=== PATIENT | male | born 1970 | race American Indian/Alaskan Native ===

== ENCOUNTER 2017-05-13 22:51 | Inpatient (IN) | payer OTHER ==
[2017-05-14] MEDS ORDERED: NACL 0.9% 1000 ML 1,000 ML IV ONE ×2 (03:30→08:06)
[2017-05-14] MEDS ORDERED: ZOFRAN ONE ×2 (03:48→04:07)
[2017-05-14] MEDS ORDERED: NACL 0.9% 1000 ML 1,000 ML ONE (03:48)
[2017-05-14] MEDS ORDERED: DILAUDID ONE (03:55)
[2017-05-14] MEDS ORDERED: NACL ONE (04:23)
[2017-05-14 05:44] LABS: Basophils % (Auto) 0.6 % (0.0-1.8); Eosinophils % (Auto) 0.4 % (0.0-4.3); Hematocrit 46.5 % (35.5-45.6); Hemoglobin 15.5 gm/dl (11.8-15.2); Mean Corpuscular HGB Conc 33 % (32-34); Mean Corpuscular Hemoglobin 29 pg (28-32); Mean Corpuscular Volume 86 fl (84-94); Platelet Count 182 K/mm3 (140-440); Red Blood Count 5.41 M/mm3 (3.65-5.03); Red Cell Distribution Width 12.7 % (13.2-15.2); White Blood Count 10.7 K/mm3 (4.5-11.0)
[2017-05-14 05:45] LABS: Alanine Aminotransferase 48 units/L (7-56); Albumin 4.6 g/dL (3.9-5); Albumin/Globulin Ratio 1.5 %; Alkaline Phosphatase 93 units/L (35-129); Anion Gap 19 mmol/L; BUN/Creatinine Ratio 11; Blood Urea Nitrogen 13 mg/dL (9-20); Calcium 9.1 mg/dL (8.4-10.2); Carbon Dioxide 27 mmol/L (22-30); Chloride 97.6 mmol/L (98-107); Glucose 227 mg/dL (75-100); Lipase 29 units/L (13-60); Potassium 3.6 mmol/L (3.6-5.0); Sodium 140 mmol/L (137-145); Total Protein 7.7 g/dL (6.3-8.2)
[2017-05-14] MEDS ORDERED: DILAUDID IV ONE ×2 (06:01→08:12)
[2017-05-14] MEDS ORDERED: ZOFRAN IV ONE (06:01)
--- NOTE | 2017-05-14 07:04 | Cat Scan Report ---
FINAL REPORT EXAM: CT ABDOMEN PELVIS W CON HISTORY: r/o obstruction TECHNIQUE: Routine axial imaging was obtained of the abdomen pelvis following the intravenous injection of 100 cc of Omnipaque 300. Oral contrast was not administered. Sagittal and coronal reconstructions were reviewed along with delayed images. There are no previous studies available for comparison. FINDINGS: The lung bases reveal atelectatic changes in the right lower lobe. Pleural fluid is not identified. There is a small hiatal hernia. The liver is normal size and reveals a faint 15 millimeter number solid nodule in the right hepatic lobe. Whether this represents an incidental hemangioma is uncertain. The gallbladder, pancreas, spleen, and adrenal glands appear normal. The kidneys enhance normally. There are sub centimeter diameter cortical cysts in both kidneys. The vascular structures enhance normally. There [id number] distention of small-bowel loops with air for levels in the abdomen suspicious for partial mechanical small bowel obstruction. There are multiple anastomotic suture lines. Free fluid is not seen. In the pelvis the prostate gland and bladder appear normal. Adenopathy is not identified. The skeletal structures are unremarkable. IMPRESSION: Aszh-ob-wxeocote distention of small-bowel loops consistent with partial mechanical small bowel obstruction. Faint 15 millimeter diameter solid nodule in the right hepatic lobe inferiorly. This may represent a hemangioma. Ultrasonography might be helpful for further evaluation. Atelectatic changes in the right lower lobe. Small cortical cysts in both kidneys.
--- NOTE | 2017-05-14 07:38 | XRay Report ---
Chest 2 views: History: Shortness of breath. Findings: Heart size is upper limit of normal. Trachea is midline. No consolidation, pneumothorax or pleural effusion. Impression: No acute cardiopulmonary findings.
--- NOTE | 2017-05-14 07:50 | Emergency Department Report ---
ED Abdominal Pain HPI - General Chief Complaint: Abdominal Pain Stated Complaint: ABD PAIN Time Seen by Provider: 05/14/17 06:20 Source: patient Mode of arrival: Ambulatory Limitations: No Limitations - History of Present Illness Initial Comments: Pt is a 47 yo male here for abdominal pain in the periumbilical region, that pt noted went up to a 10/10. Pt states that he has been vomiting x 15 along with constipation. Pt states that he is s/p partial colectomy. Pt denied any fever. Pt stated his last bm was about 3 days ago which he stated is unusual for him. MD Complaint: abdominal pain Location: periumbilical Severity scale (0 -10): 3 Consistency: colicky Improves With: nothing - Related Data Previous Rx's Medication Instructions Recorded Last Taken Type Ciprofloxacin HCl [Ciprofloxacin 500 mg PO Q12HR #20 tab 04/10/15 Unknown Rx TAB] traMADol [Ultram] 50 mg PO Q6HR PRN #20 tablet 04/10/15 Unknown Rx Allergies Allergy/AdvReac Type Severity Reaction Status Date / Time aspirin AdvReac Bleeding Verified 05/14/17 01:11 ED Review of Systems ROS: Stated complaint: ABD PAIN Other details as noted in HPI Constitutional: denies: chills, fever ENT: denies: ear pain, throat pain Respiratory: denies: cough, shortness of breath, wheezing Cardiovascular: denies: chest pain, palpitations Endocrine: no symptoms reported Gastrointestinal: abdominal pain, nausea, vomiting, constipation Genitourinary: as per HPI Musculoskeletal: denies: as per HPI Skin: denies: rash Neurological: denies: headache, weakness Psychiatric: denies: as per HPI Hematological/Lymphatic: denies: as per HPI ED Past Medical Hx - Past Medical History Previous Medical History?: Yes Additional medical history: hemophillia - Surgical History Past Surgical History?: Yes Additional Surgical History: colon removed - Social History Smoking Status: Never Smoker - Medications Home Medications: Home Medications Medication Instructions Recorded Confirmed Last Taken Type Ciprofloxacin HCl [Ciprofloxacin 500 mg PO Q12HR #20 tab 04/10/15 Unknown Rx TAB] traMADol [Ultram] 50 mg PO Q6HR PRN #20 tablet 04/10/15 Unknown Rx ED Physical Exam - General Limitations: No Limitations General appearance: alert - Head Head exam: Present: atraumatic - Eye Eye exam: Present: normal appearance, PERRL, EOMI - ENT ENT exam: Present: normal exam - Neck Neck exam: Present: normal inspection - Respiratory Respiratory exam: Present: normal lung sounds bilaterally - Cardiovascular Cardiovascular Exam: Present: regular rate, normal rhythm, normal heart sounds - GI/Abdominal GI/Abdominal exam: Present: soft, distended, tenderness, hypoactive bowel sounds. Absent: guarding, rebound - Rectal Rectal exam: Present: deferred - Extremities Exam Extremities exam: Present: normal inspection - Back Exam Back exam: Present: normal inspection - Neurological Exam Neurological exam: Present: alert, oriented X3, CN II-XII intact - Psychiatric Psychiatric exam: Present: normal affect - Skin Skin exam: Present: warm, dry, intact, normal color ED Course Vital Signs 05/14/17 05/14/17 05/14/17 01:12 01:29 02:00 Temperature 98.6 F Pulse Rate 95 H Respiratory 18 18 Rate Blood Pressure 185/119 172/112 O2 Sat by Pulse 100 99 Oximetry 05/14/17 05/14/17 05/14/17 03:00 04:00 05:00 Temperature Pulse Rate Respiratory Rate Blood Pressure 175/118 181/115 148/81 O2 Sat by Pulse 93 92 94 Oximetry 05/14/17 05/14/17 06:00 07:00 Temperature Pulse Rate Respiratory Rate Blood Pressure 133/86 131/88 O2 Sat by Pulse 95 91 Oximetry - Consultations Consultation #1: 05/14/17 07:49 [id number] Dr Lua consulted regarding partial sBO 05/14/17 08:15 discussed with Brennanet who agreed to admit the pt ED Medical Decision Making - Lab Data Result diagrams: 05/14/17 01:29 05/14/17 01:29 Critical care attestation.: If time is entered above; I have spent that time in minutes in the direct care of this critically ill patient, excluding procedure time. ED Disposition Clinical Impression: Small bowel obstruction, partial Disposition: -09 OP ADMIT IP TO THIS HOSP Is pt being admited?: Yes Does the pt Need Aspirin: No Condition: Stable Referrals: PRIMARY CARE, [Primary Care Provider] - 3-5 Days Time of Disposition: 00:00
[2017-05-14 08:14] LABS: Alanine Aminotransferase 44 units/L (7-56); Albumin 4.4 g/dL (3.9-5); Albumin/Globulin Ratio 1.6 %; Alkaline Phosphatase 86 units/L (35-129); Anion Gap 20 mmol/L; BUN/Creatinine Ratio 12; Bilirubin,Direct 0.6 mg/dL (0-0.2); Bilirubin,Indirect 1.1 mg/dL; Blood Urea Nitrogen 13 mg/dL (9-20); Calcium 9.1 mg/dL (8.4-10.2); Carbon Dioxide 29 mmol/L (22-30); Chloride 98.4 mmol/L (98-107); Glucose 227 mg/dL (75-100); Lipase 30 units/L (13-60); Potassium 3.9 mmol/L (3.6-5.0); Sodium 143 mmol/L (137-145); Total Protein 7.2 g/dL (6.3-8.2)
[2017-05-14] MEDS ORDERED: TYLENOL PO PRN (09:30)
--- NOTE | 2017-05-14 09:37 | XRay Report ---
Single view abdomen: History: NG tube placement. Findings: Tip of NG tube is noted in the stomach. Impression: Tip of NG tube is noted in the stomach.
[2017-05-14] MEDS ORDERED: DULCOLAX PR PRN (10:00)
--- NOTE | 2017-05-14 10:07 | History and Physical Report ---
History of Present Illness Date of examination: 05/14/17 Date of admission: 05/14/17 08:56 Chief complaint: Abdominal pain History of present illness: The patient is a 47 years old male with with pat medical history of hypertension , colon resection and hemophilia who [facility] a 3 days history of worsening abdominal pain and distension. The patient states that for the past five days he has felt bloated and has had a decrease in appetite. 3 days ago he has began having intermittent abdominal pain that initially felt like gas pains but it has now progressed to being nearly constant. Since yesterday he has had severe nausea and has had multiple episodes of bilious vomiting despite not having taken anything by mouth in over 24 hours. His last bowel movement was over five days ago. He has a history of intermittent constipation but never with this level of pain, the vomiting, or the bloating. he has a history of multiple colon surgery as. Initially, when he would eat the pain would increase but he has not eaten anything for over 24 hours. Vomiting is the only thing that seems to provide some minimal relief. Currently, the pain is described as a constant dull, diffuse pain that intermittently becomes sharp and well localized. The sharp pain tends to occur in different locations at different times. The intensity of the pain has been increasing over the past two days and on pain scale he now rates the pain at 8 out of 10. He denies a recent history of fever, jaundice, pruritis, diarrhea, hemoptysis, melena, or hematochezia. He denies a known history of hemorrhoids, diverticulitis, colon cancer, peptic ulcer disease, gastritis, acid reflux, gall bladder disease or cholelithiasis. Past History Past Medical History: hypertension, other ( colon resection and hemophilia ) Past Surgical History: Other ( colon resection ) Social history: denies: smoking, alcohol abuse Family history: hypertension Medications and Allergies Allergies Allergy/AdvReac Type Severity Reaction Status Date / Time aspirin AdvReac Bleeding Verified 05/14/17 01:11 Home Medications Medication Instructions Recorded Confirmed Last Taken Type Ciprofloxacin HCl [Ciprofloxacin 500 mg PO Q12HR #20 tab 04/10/15 Unknown Rx TAB] traMADol [Ultram] 50 mg PO Q6HR PRN #20 tablet 04/10/15 Unknown Rx Active Meds: Active Medications Acetaminophen (Tylenol) 650 mg PO Q4H PRN PRN Reason: Pain MILD(1-3)/Fever >100.5/VELASQUEZ Bisacodyl (Dulcolax) 10 mg NE QDAY PRN PRN Reason: Constipation Enoxaparin Sodium (Lovenox) 40 mg SUB-Q QDAY RIKY Hydromorphone HCl (Dilaudid) 1 mg IV Q4H PRN PRN Reason: Pain , Severe (7-10) Sodium Chloride (Nacl 0.9% 1000 Ml) 1,000 mls @ 125 mls/hr IV ONCE ONE Stop: 05/14/17 16:05 Last Admin: 05/14/17 08:50 Dose: 125 mls/hr Sodium Chloride (Nacl 0.9% 1000 Ml) 1,000 mls @ 100 mls/hr IV DIRECT RIKY Ondansetron HCl (Zofran) 4 mg IV Q4H PRN PRN Reason: Nausea And Vomiting Review of Systems Constitutional: no weight gain, no fever Ears, nose, mouth and throat: no ear discharge, no tinnitis, no decreased hearing, no nose pain, no nasal congestion Cardiovascular: no palpitations, no rapid/irregular heart beat, no edema Respiratory: no excessive sputum, no hemoptysis, no shortness of breath Gastrointestinal: abdominal pain, nausea, vomiting, constipation, change in bowel habits, loss of appetite, indigestion, dyspepsia/bloating, no hematemesis , no coffee ground emesis, no melena, no hematochezia Genitourinary Male: no urinary frequency, no urinary hesitancy Rectal: no incontinence, no bleeding Musculoskeletal: no shooting arm pain, no arm numbness/tingling, no low back pain Integumentary: no redness, no sores, no wounds Neurological: no weakness, no parathesias, no tingling, no seizures Psychiatric: no memory loss, no change in sleep habits, no sleep disturbances, no insomnia Endocrine: no cold intolerance, no heat intolerance, no polyphagia, no excessive thirst Hematologic/Lymphatic: no easy bruising, no easy bleeding Allergic/Immunologic: no urticaria, no allergic rhinitis Exam - Constitutional Vitals: Temp Pulse Resp BP Pulse Ox 98.5 F 95 H 18 125/80 94 05/14/17 07:30 05/14/17 01:12 05/14/17 01:29 05/14/17 08:00 05/14/17 08:00 General appearance: Present: no acute distress - EENT Eyes: Present: PERRL ENT: hearing intact - Neck Neck: Present: supple - Respiratory Respiratory effort: normal Respiratory: bilateral: CTA - Cardiovascular Rhythm: regular Heart Sounds: Present: S1 & S2 - Abdominal General gastrointestinal: Present: soft, non-tender Male genitourinary: Present: deferred - Rectal Rectal Exam: deferred - Integumentary Integumentary: Present: clear, warm, dry - Musculoskeletal Musculoskeletal: strength equal bilaterally - Psychiatric Psychiatric: appropriate mood/affect - Neurologic Neurologic: moves all extremities - Allied Health Allied health notes reviewed: nursing Results - Labs CBC & Chem 7: 05/14/17 01:29 05/14/17 03:41 Labs: Laboratory Last Values WBC 10.7 K/mm3 (4.5-11.0) 05/14/17 01:29 RBC 5.41 M/mm3 (3.65-5.03) H 05/14/17 01:29 Hgb 15.5 gm/dl (11.8-15.2) H 05/14/17 01:29 Hct 46.5 % (35.5-45.6) H 05/14/17 01:29 MCV 86 fl (84-94) 05/14/17 01:29 MCH 29 pg (28-32) 05/14/17 01:29 MCHC 33 % (32-34) 05/14/17 01:29 RDW 12.7 % (13.2-15.2) L 05/14/17 01:29 Plt Count 182 K/mm3 (140-440) 05/14/17 01:29 Lymph % (Auto) 22.4 % (13.4-35.0) 05/14/17 01:29 Person % (Auto) 6.7 % (0.0-7.3) 05/14/17 01:29 Eos % (Auto) 0.4 % (0.0-4.3) 05/14/17 01:29 Baso % (Auto) 0.6 % (0.0-1.8) 05/14/17 01:29 Lymph # 2.4 K/mm3 (1.2-5.4) 05/14/17 01:29 Person # 0.7 K/mm3 (0.0-0.8) 05/14/17 01:29 Eos # 0.0 K/mm3 (0.0-0.4) 05/14/17 01:29 Baso # 0.1 K/mm3 (0.0-0.1) 05/14/17 01:29 Seg Neutrophils % 69.9 % (40.0-70.0) 05/14/17 01:29 Seg Neutrophils # 7.5 K/mm3 (1.8-7.7) 05/14/17 01:29 Sodium 143 mmol/L (137-145) 05/14/17 03:41 Potassium 3.9 mmol/L (3.6-5.0) 05/14/17 03:41 Chloride 98.4 mmol/L (98-107) 05/14/17 03:41 Carbon Dioxide 29 mmol/L (22-30) 05/14/17 03:41 Anion Gap 20 mmol/L 05/14/17 03:41 BUN 13 mg/dL (9-20) 05/14/17 03:41 Creatinine 1.1 mg/dL (0.8-1.5) 05/14/17 03:41 Estimated GFR > 60 ml/min 05/14/17 03:41 BUN/Creatinine Ratio 12 % 05/14/17 03:41 Glucose 227 mg/dL (75-100) H 05/14/17 03:41 POC Glucose 201 (70-105) H 05/14/17 00:59 Calcium 9.1 mg/dL (8.4-10.2) 05/14/17 03:41 Total Bilirubin 1.70 mg/dL (0.1-1.2) H 05/14/17 03:41 Direct Bilirubin 0.6 mg/dL (0-0.2) H 05/14/17 03:41 Indirect Bilirubin 1.1 mg/dL 05/14/17 03:41 AST 35 units/L (5-40) 05/14/17 03:41 ALT 44 units/L (7-56) 05/14/17 03:41 Alkaline Phosphatase 86 units/L (35-129) 05/14/17 03:41 Troponin T < 0.010 ng/mL (0.00-0.029) 05/14/17 08:03 Total Protein 7.2 g/dL (6.3-8.2) 05/14/17 03:41 Albumin 4.4 g/dL (3.9-5) 05/14/17 03:41 Albumin/Globulin Ratio 1.6 % 05/14/17 03:41 Lipase 30 units/L (13-60) 05/14/17 03:41 - Imaging and Cardiology Chest x-ray: image reviewed (unremarkable) CT scan - abdomen: image reviewed (mild to moderate distention of small bowel loops consistent with partial mechanical small bowel obstruction.) Assessment and Plan Assessment and plan: he patient is a 47 years old male with with pat medical history of hypertension , colon resection and hemophilia who [facility] a 3 days history of worsening abdominal pain and distension. The patient states that for the past five days he has felt bloated and has had a decrease in appetite. Partial small bowel obstruction. CT of the abdomen showed, mild to moderate distention of small bowel loops consistent with partial mechanical small bowel obstruction. Nothing by mouth NG-tube in place IV fluid Surgery consult Supportive care Intractable nausea and vomiting Secondary to small bowel obstruction. Antiemetic IV fluid Closely monitor electrolytes Abdominal Pain Secondary to small bowel obstruction Pain controlled with Dilaudid Supportive care Hypertension Patient diagnosed with HTN but never been prescribed antihypertensive medication Closely monitor blood pressure, if BP increased we will start him on antihypertensive medications Elevated total bilirubin Secondary to small bowel obstruction. TX SBO DVT prophylaxis Lovenox Advance Directives: Yes VTE prophylaxis?: Chemical Contraindication Mechanical VTE Prophylaxis: Treatment Not Indicated Plan of care discussed with patient/family: Yes
[2017-05-14] MEDS: LOVENOX SUB-Q SCH (10:25)
[2017-05-14] MEDS ORDERED: LOVENOX SUB-Q ONE (10:31)
[2017-05-14] MEDS: DILAUDID IV PRN ×2 (11:50→21:14)
[2017-05-14] MEDS ORDERED: CHLORASEPTIC MM PRN (13:02)
--- NOTE | 2017-05-14 13:15 | Progress Note ---
Assessment and Plan Full consult dictated: Pt is a 47 yo male here for abdominal pain in the periumbilical region, that pt noted went up to a 10/10. Pt states that he has been vomiting x 15 along with constipation. Pt states that he is s/p partial colectomy. Pt denied any fever. Pt stated his last bm was about 3 days ago which he stated is unusual for him. MD Complaint: abdominal pain NG in place. Abd distended. hypoactive BS CT - partial sbo imp - partial sbo secondary to adhesions. rec NPO IVF hydration NG suction f/u abd series in am will follow Selected Entries 05/14/17 05/14/17 07:30 08:00 Temperature 98.5 F Blood Pressure 125/80 Laboratory Tests 05/14/17 05/14/17 01:29 01:29 WBC 10.7 Hgb 15.5 H Hct 46.5 H Chloride 97.6 L Carbon Dioxide 27 Lipase 29 Objective Vital Signs - 12hr 05/14/17 05/14/17 05/14/17 01:29 02:00 03:00 Temperature Respiratory 18 Rate Blood Pressure 172/112 175/118 O2 Sat by Pulse 99 93 Oximetry 05/14/17 05/14/17 05/14/17 04:00 05:00 06:00 Temperature Respiratory Rate Blood Pressure 181/115 148/81 133/86 O2 Sat by Pulse 92 94 95 Oximetry 05/14/17 05/14/17 05/14/17 07:00 07:30 08:00 Temperature 98.5 F Respiratory Rate Blood Pressure 131/88 125/80 O2 Sat by Pulse 91 94 Oximetry - Labs 05/14/17 01:29 05/14/17 03:41 Diabetes panel 05/14/17 05/14/17 Range/Units 01:29 03:41 Sodium 140 143 (137-145) mmol/L Potassium 3.6 3.9 (3.6-5.0) mmol/L Chloride 97.6 L 98.4 (98-107) mmol/L Carbon Dioxide 27 29 (22-30) mmol/L BUN 13 13 (9-20) mg/dL Creatinine 1.1 (0.8-1.5) mg/dL Glucose 227 H 227 H (75-100) mg/dL Calcium 9.1 9.1 (8.4-10.2) mg/dL AST 35 35 (5-40) units/L ALT 48 44 (7-56) units/L Alkaline Phosphatase 93 86 (35-129) units/L Total Protein 7.7 7.2 (6.3-8.2) g/dL Albumin 4.6 4.4 (3.9-5) g/dL Calcium panel 05/14/17 05/14/17 Range/Units 01:29 03:41 Calcium 9.1 9.1 (8.4-10.2) mg/dL Albumin 4.6 4.4 (3.9-5) g/dL Pituitary panel 05/14/17 05/14/17 Range/Units 01:29 03:41 Sodium 140 143 (137-145) mmol/L Potassium 3.6 3.9 (3.6-5.0) mmol/L Chloride 97.6 L 98.4 (98-107) mmol/L Carbon Dioxide 27 29 (22-30) mmol/L BUN 13 13 (9-20) mg/dL Creatinine 1.1 (0.8-1.5) mg/dL Glucose 227 H 227 H (75-100) mg/dL Calcium 9.1 9.1 (8.4-10.2) mg/dL Adrenal panel 05/14/17 05/14/17 Range/Units 01:29 03:41 Sodium 140 143 (137-145) mmol/L Potassium 3.6 3.9 (3.6-5.0) mmol/L Chloride 97.6 L 98.4 (98-107) mmol/L Carbon Dioxide 27 29 (22-30) mmol/L BUN 13 13 (9-20) mg/dL Creatinine 1.1 (0.8-1.5) mg/dL Glucose 227 H 227 H (75-100) mg/dL Calcium 9.1 9.1 (8.4-10.2) mg/dL Total Bilirubin 1.90 H 1.70 H (0.1-1.2) mg/dL AST 35 35 (5-40) units/L ALT 48 44 (7-56) units/L Alkaline Phosphatase 93 86 (35-129) units/L Total Protein 7.7 7.2 (6.3-8.2) g/dL Albumin 4.6 4.4 (3.9-5) g/dL
[2017-05-14] MEDS ORDERED: HURRICAINE ONE 20% TOPICAL SPRAY MM (13:30)
[2017-05-14] MEDS: NACL 0.9% 1000 ML 1,000 ML IV SCH ×2 (14:31→22:18)
[2017-05-14] MEDS: PEPCID IV SCH ×2 (14:31→21:14)
[2017-05-14] MEDS ORDERED: CEPACOL X STRENGTH MM PRN (15:33)
[2017-05-14] MEDS: MINERAL OIL FEEDTUBE SCH ×3 (16:16→21:21)
[2017-05-14] MEDS: ZOFRAN IV PRN (21:14)
[2017-05-15] MEDS: MINERAL OIL FEEDTUBE SCH ×6 (02:07→21:25)
--- NOTE | 2017-05-15 02:07 | Consultation ---
DATE OF CONSULTATION: 05/14/2017 REASON FOR CONSULTATION: Rule out partial small bowel obstruction. HISTORY OF PRESENT ILLNESS: The patient is a 47-year-old gentleman who presented to the Emergency Room with recent onset of abdominal pain accompanied by nausea and vomiting. PAST MEDICAL HISTORY: Pertinent for hemophilia. PAST SURGICAL HISTORY: Status post partial colectomy secondary to what turned out to be a bleeding polyp, according to the patient. The patient does state that the polyp was benign, also subsequent exploratory laparotomy for colostomy reversal. ALLERGIES: No known allergies. MEDICATIONS: No medications. FAMILY HISTORY: Hemophilia. SOCIAL HISTORY: Denies any smoking or drinking. REVIEW OF SYSTEMS: Noncontributory. PHYSICAL EXAMINATION: GENERAL: At this time reveals the patient to be awake, alert, cooperative, in no acute distress. NG tube is in place. VITAL SIGNS: Shown to be afebrile with a temperature of 98.5, blood pressure 125/80, pulse of 94. ABDOMEN: Examination of the abdomen reveals a long midline scar. Also, a transverse scar is noted in the right lower quadrant of the abdomen presumably from what would appear to be an ascending colostomy. The abdomen itself is 1+ distended and mildly tender. Bowel sounds are hypoactive to absent. LABORATORY AND DIAGNOSTIC DATA: Lab work at present includes a CBC which shows a white count of 10.7, H and H is 15.5 and 46.5. Electrolytes are essentially within normal limits. Total bilirubin is 1.7. LFTs are normal. Lipase is 30. A CT scan of the abdomen has been performed, which I have reviewed with the radiologist. There are signs of a partial small-bowel obstruction. Some nondescript dilated small bowel loops are noted, however, the contrast and air is noted throughout the small bowel into the colon. IMPRESSION: At this time is that of a 47-year-old gentleman, rule out partial small-bowel obstruction, most likely secondary to adhesions from previous abdominal surgery. RECOMMENDATIONS: We would recommend to keep the patient n.p.o., an NG suction, and IV fluid hydration. We will start mineral oil through the NG tube. We will repeat labs in the morning as well as a followup abdominal series. I will follow closely with you. Thank you very much for consultation. JOB# [id number] FP/NTS
[2017-05-15 06:08] LABS: Mucus,Urine FEW /HPF
[2017-05-15 06:11] LABS: Bilirubin,Urine NEG (Negative); Blood,Urine NEG (Negative); Ketones,Urine 20 mg/dL (Negative); Leukocyte Esterase,Urine NEG (Negative); Nitrite,Urine NEG (Negative); Protein,Urine <15 mg/dL mg/dL (Negative); Urobilinogen,Urine < 2.0 mg/dL (<2.0)
[2017-05-15] MEDS: NACL 0.9% 1000 ML 1,000 ML IV SCH ×2 (06:11→15:14)
[2017-05-15] MEDS: ZOFRAN IV PRN ×2 (08:25→15:53)
--- NOTE | 2017-05-15 09:02 | XRay Report ---
Abdominal series: History: Small bowel obstruction. Findings: Borderline cardiomegaly. No acute lung changes. No free intraperitoneal air. Air is noted in few loops of small bowel and descending colon. No significant bowel distention or wall thickening. No radiopaque calculus or abnormal calcification. Impression: Nonspecific findings. No evidence of bowel obstruction.
--- NOTE | 2017-05-15 09:33 | Progress Note ---
Assessment and Plan Assessment and plan: 47 years old male with with pat medical history of hypertension, colon resection and hemophilia who presents the [facility] department for a 3 days history of worsening abdominal pain and distension. The patient states that for the past five days he has felt bloated and has had a decrease in appetite. Partial small bowel obstruction. sp Decompression by NGT, now clamped, keep NPO surgery input appreciated Hypertension Patient diagnosed with HTN but never been prescribed antihypertensive medication Closely monitor blood pressure, if BP increased we will start him on antihypertensive medications Elevated total bilirubin Secondary to small bowel obstruction. fup LFTs, doing well DVT prophylaxis Lovenox History Interval history: abdominal pain and bloating is now resolved, he is passing gas and has had a BM Hospitalist Physical - Constitutional Vitals: Temp Pulse Resp BP Pulse Ox 99.2 F 69 22 139/80 94 05/15/17 08:05 05/15/17 08:05 05/15/17 08:05 05/15/17 08:05 05/15/17 08:05 General appearance: Present: no acute distress - EENT Eyes: Present: PERRL, EOM intact ENT: hearing intact, clear oral mucosa - Neck Neck: Present: supple, normal ROM - Respiratory Respiratory effort: normal Respiratory: bilateral: CTA - Cardiovascular Rhythm: regular Heart Sounds: Present: S1 & S2 - Extremities Extremities: no ischemia Peripheral Pulses: within normal limits - Abdominal General gastrointestinal: soft, non-tender, non-distended, normal bowel sounds - Integumentary Integumentary: Present: clear, warm - Psychiatric Psychiatric: appropriate mood/affect, intact judgment & insight - Neurologic Neurologic: CNII-XII intact, moves all extremities Results - Labs CBC & Chem 7: 05/16/17 07:02 05/16/17 07:02 Labs: Laboratory Last Values WBC 10.7 K/mm3 (4.5-11.0) 05/14/17 01:29 RBC 5.41 M/mm3 (3.65-5.03) H 05/14/17 01:29 Hgb 15.5 gm/dl (11.8-15.2) H 05/14/17 01:29 Hct 46.5 % (35.5-45.6) H 05/14/17 01:29 MCV 86 fl (84-94) 05/14/17 01:29 MCH 29 pg (28-32) 05/14/17 01:29 MCHC 33 % (32-34) 05/14/17 01:29 RDW 12.7 % (13.2-15.2) L 05/14/17 01:29 Plt Count 182 K/mm3 (140-440) 05/14/17 01:29 Lymph % (Auto) 22.4 % (13.4-35.0) 05/14/17 01:29 [place] % (Auto) 6.7 % (0.0-7.3) 05/14/17 01:29 Eos % (Auto) 0.4 % (0.0-4.3) 05/14/17 01:29 Baso % (Auto) 0.6 % (0.0-1.8) 05/14/17 01:29 Lymph # 2.4 K/mm3 (1.2-5.4) 05/14/17 01:29 [place] # 0.7 K/mm3 (0.0-0.8) 05/14/17 01:29 Eos # 0.0 K/mm3 (0.0-0.4) 05/14/17 01:29 Baso # 0.1 K/mm3 (0.0-0.1) 05/14/17 01:29 Seg Neutrophils % 69.9 % (40.0-70.0) 05/14/17 01:29 Seg Neutrophils # 7.5 K/mm3 (1.8-7.7) 05/14/17 01:29 Sodium 143 mmol/L (137-145) 05/14/17 03:41 Potassium 3.9 mmol/L (3.6-5.0) 05/14/17 03:41 Chloride 98.4 mmol/L (98-107) 05/14/17 03:41 Carbon Dioxide 29 mmol/L (22-30) 05/14/17 03:41 Anion Gap 20 mmol/L 05/14/17 03:41 BUN 13 mg/dL (9-20) 05/14/17 03:41 Creatinine 1.1 mg/dL (0.8-1.5) 05/14/17 03:41 Estimated GFR > 60 ml/min 05/14/17 03:41 BUN/Creatinine Ratio 12 % 05/14/17 03:41 Glucose 227 mg/dL (75-100) H 05/14/17 03:41 POC Glucose 201 (70-105) H 05/14/17 00:59 Calcium 9.1 mg/dL (8.4-10.2) 05/14/17 03:41 Total Bilirubin 1.70 mg/dL (0.1-1.2) H 05/14/17 03:41 Direct Bilirubin 0.6 mg/dL (0-0.2) H 05/14/17 03:41 Indirect Bilirubin 1.1 mg/dL 05/14/17 03:41 AST 35 units/L (5-40) 05/14/17 03:41 ALT 44 units/L (7-56) 05/14/17 03:41 Alkaline Phosphatase 86 units/L (35-129) 05/14/17 03:41 Troponin T < 0.010 ng/mL (0.00-0.029) 05/14/17 08:03 Total Protein 7.2 g/dL (6.3-8.2) 05/14/17 03:41 Albumin 4.4 g/dL (3.9-5) 05/14/17 03:41 Albumin/Globulin Ratio 1.6 % 05/14/17 03:41 Lipase 30 units/L (13-60) 05/14/17 03:41 Urine Color Yellow (Yellow) 05/15/17 05:00 Urine Turbidity Clear (Clear) 05/15/17 05:00 Urine pH 5.0 (5.0-7.0) 05/15/17 05:00 Ur Specific [place] 1.024 (1.003-1.030) 05/15/17 05:00 Urine Protein <15 mg/dl mg/dL (Negative) 05/15/17 05:00 Urine Glucose (UA) 50 mg/dL (Negative) 05/15/17 05:00 Urine Ketones 20 mg/dL (Negative) 05/15/17 05:00 Urine Blood Neg (Negative) 05/15/17 05:00 Urine Nitrite Neg (Negative) 05/15/17 05:00 Ur Reducing Substances Not Reportable 05/15/17 05:00 Urine Bilirubin Neg (Negative) 05/15/17 05:00 Urine Ictotest Not Reportable 05/15/17 05:00 Urine Urobilinogen < 2.0 mg/dL (<2.0) 05/15/17 05:00 Ur Leukocyte Esterase Neg (Negative) 05/15/17 05:00 Urine WBC (Auto) 3.0 /HPF (0.0-6.0) 05/15/17 05:00 Urine RBC (Auto) 2.0 /HPF (0.0-6.0) 05/15/17 05:00 U Epithel Cells (Auto) 1.0 /HPF (0-13.0) 05/15/17 05:00 Urine Mucus Few /HPF 05/15/17 05:00 - Imaging and Cardiology Abdominal x-ray: image reviewed (bowel obstruction now resolved)
[2017-05-15] MEDS: PEPCID IV SCH ×2 (10:58→21:27)
[2017-05-15] MEDS: LOVENOX SUB-Q SCH ×2 (10:58→11:13)
--- NOTE | 2017-05-15 12:32 | Progress Note ---
Assessment and Plan Pt feeling well. +flatus Abd softer. + BS Abd series - essentially wnl resolving partial sbo d/c ng keep npo x 24 hrs SBFT study in am Selected Entries 05/14/17 05/15/17 21:15 08:05 Temperature 99.2 F Pulse Rate 69 Respiratory 16 Rate Blood Pressure 139/80 Objective Vital Signs - 12hr 05/15/17 08:05 Temperature 99.2 F Pulse Rate 69 Respiratory 22 Rate Blood Pressure 139/80 O2 Sat by Pulse 94 Oximetry - Labs 05/14/17 01:29 05/14/17 03:41
[2017-05-15] MEDS: DILAUDID IV PRN (15:53)
[2017-05-16] MEDS: NACL 0.9% 1000 ML 1,000 ML IV SCH (00:12)
[2017-05-16] MEDS: MINERAL OIL FEEDTUBE SCH ×4 (02:56→17:42)
[2017-05-16 07:25] LABS: Basophils % (Auto) 0.6 % (0.0-1.8); Eosinophils % (Auto) 1.4 % (0.0-4.3); Hematocrit 41.6 % (35.5-45.6); Hemoglobin 13.8 gm/dl (11.8-15.2); Mean Corpuscular HGB Conc 33 % (32-34); Mean Corpuscular Hemoglobin 29 pg (28-32); Mean Corpuscular Volume 86 fl (84-94); Platelet Count 159 K/mm3 (140-440); Red Blood Count 4.83 M/mm3 (3.65-5.03); Red Cell Distribution Width 12.5 % (13.2-15.2); White Blood Count 8.3 K/mm3 (4.5-11.0)
[2017-05-16 07:50] LABS: Alanine Aminotransferase 34 units/L (7-56); Albumin 3.7 g/dL (3.9-5); Albumin/Globulin Ratio 1.2 %; Alkaline Phosphatase 75 units/L (35-129); Amylase 68 units/L (27-131); Anion Gap 16 mmol/L; BUN/Creatinine Ratio 11; Blood Urea Nitrogen 10 mg/dL (9-20); Calcium 8.2 mg/dL (8.4-10.2); Carbon Dioxide 28 mmol/L (22-30); Chloride 101.4 mmol/L (98-107); Glucose 133 mg/dL (75-100); Potassium 3.4 mmol/L (3.6-5.0); Sodium 142 mmol/L (137-145); Total Protein 6.8 g/dL (6.3-8.2)
[2017-05-16] MEDS: LOVENOX SUB-Q SCH (10:00)
--- NOTE | 2017-05-16 10:18 | Progress Note ---
Assessment and Plan Assessment and plan: 47 years old male with with pat medical history of hypertension, colon resection and hemophilia who presents the emregency department for a 3 days history of worsening abdominal pain and distension. The patient states that for the past five days he has felt bloated and has had a decrease in appetite. Partial small bowel obstruction. received NG tube to suction, had bowel medically decompressed now continue clear liquid diet, ADAT Intractable nausea and vomiting due to SBO, rx as above Hypertension Patient diagnosed with HTN but never been prescribed antihypertensive medication will start him on norvasc daily DVT prophylaxis Lovenox History Interval history: abdominal pain and bloating is now resolved, he is passing gas and has had a BM Hospitalist Physical - Physical exam Narrative exam: General appearance: Present: no acute distress - EENT Eyes: Present: PERRL, EOM intact ENT: hearing intact, clear oral mucosa - Neck Neck: Present: supple, normal ROM - Respiratory Respiratory effort: normal Respiratory: bilateral: CTA - Cardiovascular Rhythm: regular Heart Sounds: Present: S1 & S2 - Extremities Extremities: no ischemia Peripheral Pulses: within normal limits - Abdominal General gastrointestinal: soft, non-tender, non-distended, normal bowel sounds - Integumentary Integumentary: Present: clear, warm - Psychiatric Psychiatric: appropriate mood/affect, intact judgment & insight - Neurologic Neurologic: CNII-XII intact, moves all extremities - Constitutional Vitals: Temp Pulse Resp BP Pulse Ox 99.1 F 74 20 154/99 93 05/16/17 08:28 05/16/17 08:28 05/16/17 08:28 05/16/17 08:28 05/16/17 08:28 General appearance: Present: no acute distress Results - Labs CBC & Chem 7: 05/16/17 07:02 05/16/17 07:02 Labs: Laboratory Last Values WBC 8.3 K/mm3 (4.5-11.0) 05/16/17 07:02 RBC 4.83 M/mm3 (3.65-5.03) 05/16/17 07:02 Hgb 13.8 gm/dl (11.8-15.2) 05/16/17 07:02 Hct 41.6 % (35.5-45.6) 05/16/17 07:02 MCV 86 fl (84-94) 05/16/17 07:02 MCH 29 pg (28-32) 05/16/17 07:02 MCHC 33 % (32-34) 05/16/17 07:02 RDW 12.5 % (13.2-15.2) L 05/16/17 07:02 Plt Count 159 K/mm3 (140-440) 05/16/17 07:02 Lymph % (Auto) 25.7 % (13.4-35.0) 05/16/17 07:02 [place] % (Auto) 7.2 % (0.0-7.3) 05/16/17 07:02 Eos % (Auto) 1.4 % (0.0-4.3) 05/16/17 07:02 Baso % (Auto) 0.6 % (0.0-1.8) 05/16/17 07:02 Lymph # 2.1 K/mm3 (1.2-5.4) 05/16/17 07:02 [place] # 0.6 K/mm3 (0.0-0.8) 05/16/17 07:02 Eos # 0.1 K/mm3 (0.0-0.4) 05/16/17 07:02 Baso # 0.1 K/mm3 (0.0-0.1) 05/16/17 07:02 Seg Neutrophils % 65.1 % (40.0-70.0) 05/16/17 07:02 Seg Neutrophils # 5.4 K/mm3 (1.8-7.7) 05/16/17 07:02 Sodium 142 mmol/L (137-145) 05/16/17 07:02 Potassium 3.4 mmol/L (3.6-5.0) L 05/16/17 07:02 Chloride 101.4 mmol/L (98-107) 05/16/17 07:02 Carbon Dioxide 28 mmol/L (22-30) 05/16/17 07:02 Anion Gap 16 mmol/L 05/16/17 07:02 BUN 10 mg/dL (9-20) 05/16/17 07:02 Creatinine 0.9 mg/dL (0.8-1.5) 05/16/17 07:02 Estimated GFR > 60 ml/min 05/16/17 07:02 BUN/Creatinine Ratio 11 % 05/16/17 07:02 Glucose 133 mg/dL (75-100) H 05/16/17 07:02 POC Glucose 201 (70-105) H 05/14/17 00:59 Hemoglobin A1c 7.5 % (4-6) H 05/16/17 07:02 Calcium 8.2 mg/dL (8.4-10.2) L 05/16/17 07:02 Total Bilirubin 1.90 mg/dL (0.1-1.2) H 05/16/17 07:02 Direct Bilirubin 0.6 mg/dL (0-0.2) H 05/14/17 03:41 Indirect Bilirubin 1.1 mg/dL 05/14/17 03:41 AST 29 units/L (5-40) 05/16/17 07:02 ALT 34 units/L (7-56) 05/16/17 07:02 Alkaline Phosphatase 75 units/L (35-129) 05/16/17 07:02 Troponin T < 0.010 ng/mL (0.00-0.029) 05/14/17 08:03 Total Protein 6.8 g/dL (6.3-8.2) 05/16/17 07:02 Albumin 3.7 g/dL (3.9-5) L 05/16/17 07:02 Albumin/Globulin Ratio 1.2 % 05/16/17 07:02 Amylase 68 units/L (27-131) 05/16/17 07:02 Lipase 30 units/L (13-60) 05/14/17 03:41 Urine Color Yellow (Yellow) 05/15/17 05:00 Urine Turbidity Clear (Clear) 05/15/17 05:00 Urine pH 5.0 (5.0-7.0) 05/15/17 05:00 Ur Specific [place] 1.024 (1.003-1.030) 05/15/17 05:00 Urine Protein <15 mg/dl mg/dL (Negative) 05/15/17 05:00 Urine Glucose (UA) 50 mg/dL (Negative) 05/15/17 05:00 Urine Ketones 20 mg/dL (Negative) 05/15/17 05:00 Urine Blood Neg (Negative) 05/15/17 05:00 Urine Nitrite Neg (Negative) 05/15/17 05:00 Ur Reducing Substances Not Reportable 05/15/17 05:00 Urine Bilirubin Neg (Negative) 05/15/17 05:00 Urine Ictotest Not Reportable 05/15/17 05:00 Urine Urobilinogen < 2.0 mg/dL (<2.0) 05/15/17 05:00 Ur Leukocyte Esterase Neg (Negative) 05/15/17 05:00 Urine WBC (Auto) 3.0 /HPF (0.0-6.0) 05/15/17 05:00 Urine RBC (Auto) 2.0 /HPF (0.0-6.0) 05/15/17 05:00 U Epithel Cells (Auto) 1.0 /HPF (0-13.0) 05/15/17 05:00 Urine Mucus Few /HPF 05/15/17 05:00 - Imaging and Cardiology Abdominal x-ray: image reviewed (essentially normal exam)
--- NOTE | 2017-05-16 12:31 | Fluoroscopy Report ---
FLUOROSCOPY SMALL BOWEL SERIES History: Partial small bowel obstruction. Findings: Marker Machine Attendant film of the abdomen is unremarkable. Multiple overhead radiographs were obtained following administration of Gastrografin orally. There is normal transit of the contrast agent throughout the small bowel and remaining colon. Subtotal colectomy is suspected. There is no evidence for obstruction. Transit time from the mouth to anus is 90 minutes. Impression: Essentially normal exam.
--- NOTE | 2017-05-16 12:53 | Progress Note ---
Assessment and Plan Pt feeling well. trell d/c of ng without compl. +BM Abd soft, non tender SBFT - contrast through to rectum in 90 min. no obvious small bowel dilatation or obstruction stable resolved partial sbo attempt cl liq diet Selected Entries 05/16/17 08:28 Temperature 99.1 F Pulse Rate 74 Blood Pressure 154/99 Laboratory Tests 05/16/17 05/16/17 05/16/17 07:02 07:02 07:02 WBC 8.3 Hgb 13.8 Hct 41.6 Sodium 142 Potassium 3.4 L Chloride 101.4 Carbon Dioxide 28 Anion Gap 16 BUN 10 Creatinine 0.9 Hemoglobin A1c 7.5 H AST 29 ALT 34 Alkaline Phosphatase 75 Amylase 68 Objective Vital Signs - 12hr 05/16/17 08:28 Temperature 99.1 F Pulse Rate 74 Respiratory 20 Rate Blood Pressure 154/99 O2 Sat by Pulse 93 Oximetry - Labs 05/16/17 07:02 05/16/17 07:02 Diabetes panel 05/16/17 05/16/17 Range/Units 07:02 07:02 Sodium 142 (137-145) mmol/L Potassium 3.4 L (3.6-5.0) mmol/L Chloride 101.4 (98-107) mmol/L Carbon Dioxide 28 (22-30) mmol/L BUN 10 (9-20) mg/dL Creatinine 0.9 (0.8-1.5) mg/dL Glucose 133 H (75-100) mg/dL Hemoglobin A1c 7.5 H (4-6) % Calcium 8.2 L (8.4-10.2) mg/dL AST 29 (5-40) units/L ALT 34 (7-56) units/L Alkaline Phosphatase 75 (35-129) units/L Total Protein 6.8 (6.3-8.2) g/dL Albumin 3.7 L (3.9-5) g/dL Calcium panel 05/16/17 Range/Units 07:02 Calcium 8.2 L (8.4-10.2) mg/dL Albumin 3.7 L (3.9-5) g/dL Pituitary panel 05/16/17 Range/Units 07:02 Sodium 142 (137-145) mmol/L Potassium 3.4 L (3.6-5.0) mmol/L Chloride 101.4 (98-107) mmol/L Carbon Dioxide 28 (22-30) mmol/L BUN 10 (9-20) mg/dL Creatinine 0.9 (0.8-1.5) mg/dL Glucose 133 H (75-100) mg/dL Calcium 8.2 L (8.4-10.2) mg/dL Adrenal panel 05/16/17 Range/Units 07:02 Sodium 142 (137-145) mmol/L Potassium 3.4 L (3.6-5.0) mmol/L Chloride 101.4 (98-107) mmol/L Carbon Dioxide 28 (22-30) mmol/L BUN 10 (9-20) mg/dL Creatinine 0.9 (0.8-1.5) mg/dL Glucose 133 H (75-100) mg/dL Calcium 8.2 L (8.4-10.2) mg/dL Total Bilirubin 1.90 H (0.1-1.2) mg/dL AST 29 (5-40) units/L ALT 34 (7-56) units/L Alkaline Phosphatase 75 (35-129) units/L Total Protein 6.8 (6.3-8.2) g/dL Albumin 3.7 L (3.9-5) g/dL
[2017-05-16] MEDS: PEPCID IV SCH ×2 (17:42→22:30)
[2017-05-16] MEDS ORDERED: NORVASC PO ONE (18:30)
[2017-05-17] MEDS ORDERED: NORVASC PO SCH (10:00)
[2017-05-17] MEDS: LOVENOX SUB-Q SCH ×2 (10:16→15:58)
[2017-05-17] MEDS: PEPCID IV SCH (10:19)
--- NOTE | 2017-05-17 13:09 | Discharge Summary ---
Providers - Providers Date of Admission: 05/14/17 08:56 Attending physician: ASMITA VELARDE 05/14/17 07:59 Consult to Physician [CONS] Routine Consulting Provider: JAN LUA Reason For Exam: partial small bowel obs Place consult to:: Dr. Lua Notified:: yes Phone number called:: [phone] Was contact made?: Yes If yes, spoke with:: Dr. Lua Time called:: 07:54 Comment:: Dr. Blackwell spoke to Dr. Lua directly Primary care physician: PHOTOVOLTAIC TECHNICIAN Hospitalization Condition: Stable Hospital course: --Partial small bowel obstruction; resolved; On clear liquids, advance diet as tolerated --Intractable nausea and vomiting; improved --Hypertension well controlled Core Measure Documentation - Palliative Care Palliative Care/ Comfort Measures: Not Applicable - Core Measures Any of the following diagnoses?: none Exam - Constitutional Vitals: Temp Pulse Resp BP Pulse Ox 98.4 F 94 H 22 121/92 94 05/17/17 08:10 05/17/17 10:18 05/17/17 08:10 05/17/17 10:18 05/17/17 08:10 General appearance: Present: no acute distress, well-nourished - EENT Eyes: Present: PERRL, EOM intact - Neck Neck: Present: supple, normal ROM - Respiratory Respiratory effort: normal Respiratory: negative: rales, rhonchi, wheezing - Cardiovascular Rhythm: regular Heart Sounds: Present: S1 & S2 - Extremities Extremities: no ischemia, No edema - Abdominal General gastrointestinal: Present: soft, non-tender, non-distended, normal bowel sounds - Integumentary Integumentary: Present: clear, warm - Musculoskeletal Musculoskeletal: strength equal bilaterally - Psychiatric Psychiatric: appropriate mood/affect, cooperative - Neurologic Neurologic: CNII-XII intact, moves all extremities Plan Activity: no restrictions Diet: advance as tolerated, other (soft diet, ) Follow up with: DREW CASSIDY MD [Primary Care Provider] - 3-5 Days JAN LUA MD [Staff Physician] - 7 Days Prescriptions: amLODIPine [Norvasc] 10 mg PO QDAY #30 tablet
[2017-05-17] MEDS ORDERED: APRESOLINE PO ONE ×2 (17:05→18:00)
--- NOTE | 2017-05-17 18:16 | Progress Note ---
Assessment and Plan Pt feeling well without compl. trell cl liq well. + flatus Abd soft, non tender uncontrolled HTN surgically stable full liq diet. may d/c from surgical perspective on full liq and po Ensure supplementation when cleared from medical perspective RTO this Tues (48hrs). Also will need f/u with PCP for HTN management Selected Entries 05/17/17 05/17/17 15:31 17:14 Temperature 99.0 F Blood Pressure 177/110 Objective Vital Signs - 12hr 05/17/17 05/17/17 05/17/17 08:10 10:18 15:31 Temperature 98.4 F 99.0 F Pulse Rate 76 94 H 88 Respiratory 22 22 Rate Blood Pressure 121/92 121/92 152/103 O2 Sat by Pulse 94 96 Oximetry 05/17/17 17:14 Temperature Pulse Rate Respiratory Rate Blood Pressure 177/110 O2 Sat by Pulse Oximetry - Labs 05/16/17 07:02 05/16/17 07:02
[2017-05-17 20:51] VITALS: BP 146/92
== END 2017-05-17 20:52 | disposition home or self-care (01) | DRG 390 ==
LOC: ED 22:51 → 3A 05-14 08:56
PROVIDERS: ADMIT Internal Medicine; ATTEND Internal Medicine
DX: K56.600 Partial intestinal obstruction, unspecified as to cause (principal); I10 Essential (primary) hypertension; Z90.49 Acquired absence of other specified parts of digestive tract; Z83.3 Family history of diabetes mellitus; Z79.899 Other long term (current) drug therapy
CPT/HCPCS: 36415; 71020; 74000; 74022; 74177; 74250; 80048; 80053; 80074; 81001; 82150; 82962; 83036; 83690; 84484; 85025; 93005; 93010; 96361; 96374; 96375; 96376; 99285; J1170; J1650; J2405; J7030; Q9967

== ENCOUNTER 2017-06-13 17:43 | Inpatient (IN) | payer OTHER ==
[2017-06-13] MEDS ORDERED: CATAPRES PO ONE (22:09)
--- NOTE | 2017-06-13 22:13 | Emergency Department Report ---
HPI - General Chief Complaint: Eye Problems Time Seen by Provider: 06/13/17 21:42 - HPI HPI: This is a 47 year-old male presents to the emergency department with complaint of a few days of some blurry vision and "seeing stars. " He has some intermittent headaches but does not have any currently. Patient also says that he has been having excessive dry mouth. He has been having increased urination but no dysuria. And lastly the patient has some consistent bleeding from a cracked tooth in the left upper jaw and the patient has hemophilia. He is not currently have a primary care physician. He has not taken anything for symptoms of presentation. He was recently placed on Norvasc here in mid April and does not think it is been working as he had his blood pressure checked earlier today and it was elevated at about 150/110 and he thinks that possibly the pressure pill is causing some of his symptoms. He denies any tobacco abuse. He denies excessive salt consumption. 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 ED Past Medical Hx - Past Medical History Hx Hypertension: Yes Additional medical history: hemophillia - Surgical History Hx Cholecystectomy: Yes Additional Surgical History: colon removed - Social History Smoking Status: Never Smoker Substance Use Type: Alcohol - Medications Home Medications: Home Medications Medication Instructions Recorded Confirmed Last Taken Type amLODIPine [Norvasc] 10 mg PO QDAY #30 tablet 05/17/17 Unknown Rx ED Review of Systems ROS: Stated complaint: BLURRED VISION Other details as noted in HPI Comment: All other systems reviewed and negative Constitutional: denies: chills, fever Eyes: vision change. denies: eye discharge ENT: denies: ear pain, throat pain Respiratory: denies: cough, shortness of breath, wheezing Cardiovascular: denies: chest pain, palpitations Gastrointestinal: denies: abdominal pain, nausea, diarrhea Genitourinary: frequency. denies: dysuria Musculoskeletal: denies: back pain, joint swelling, arthralgia Skin: denies: rash, lesions Neurological: headache (intermittent but none currently). denies: numbness, paresthesias Physical Exam - Physical Exam Vital Signs: Vital Signs 06/13/17 06/13/17 06/13/17 17:44 20:38 20:39 Temperature 98.8 F 98.4 F Pulse Rate 108 H 92 H Respiratory 16 16 16 Rate Blood Pressure 162/103 Blood Pressure 144/91 [Right] O2 Sat by Pulse 97 96 96 Oximetry 06/13/17 21:54 Temperature Pulse Rate 99 H Respiratory 16 Rate Blood Pressure Blood Pressure 179/122 [Right] O2 Sat by Pulse 99 Oximetry Physical Exam: GENERAL: The patient is well-developed well-nourished. HENT: Normocephalic. Atraumatic. Patient has moist mucous membranes. EYES: Extraocular motions are intact. Pupils equal reactive to light bilaterally. No nystagmus. Visual acuity: Both eyes, OD and OS are all 20/70. NECK: Supple. Trachea is midline. CHEST/LUNGS: Clear to auscultation. There is no respiratory distress noted. HEART/CARDIOVASCULAR: Regular. There is no tachycardia. There is no murmur. ABDOMEN: Abdomen is soft, nontender. Patient has normal bowel sounds. There is no abdominal distention. SKIN: Skin is warm and dry. NEURO: The patient is awake, alert, and oriented. The patient is cooperative. The patient has no focal neurologic deficits. The patient has normal speech. Cranial nerves II-12 grossly intact. MUSCULOSKELETAL: There is no tenderness or deformity. There is no limitation range of motion. There is no evidence of acute injury. ED Course Vital Signs 06/13/17 06/13/17 06/13/17 17:44 20:38 20:39 Temperature 98.8 F 98.4 F Pulse Rate 108 H 92 H Respiratory 16 16 16 Rate Blood Pressure 162/103 Blood Pressure 144/91 [Right] O2 Sat by Pulse 97 96 96 Oximetry 06/13/17 21:54 Temperature Pulse Rate 99 H Respiratory 16 Rate Blood Pressure Blood Pressure 179/122 [Right] O2 Sat by Pulse 99 Oximetry - Consultations Consultation #1: I spoke to the interviewing clerk on-call, Dr. Collado, who says that we can attempt to control the bleeding of his tooth in this hemophiliac with DDAVP at 0.3 g per KG. If that does not work, we do have factor VIII available in the form of Helixate, and the dosing would be 10 units per KG. However this medication allegedly is on property but not necessarily property of the hospital to use. 06/14/17 00:03 ED Medical Decision Making - Lab Data Result diagrams: 06/13/17 22:08 06/14/17 01:45 - EKG Data -: EKG Interpreted by Me EKG shows normal: sinus rhythm, axis (left axis deviation), intervals, QRS complexes (LVH), ST-T waves (early repolarization) Rate: normal - EKG Data When compared to previous EKG there are: previous EKG unavailable Interpretation: other (sinus rhythm, left axis deviation, LVH, early repolarization) - Medical Decision Making Patient originally presented with uncontrolled blood pressure, blurry vision but also mentioned having some dry mouth and polyuria. Patient's labs came back showing a blood sugar of almost 1000. There is no venous acidosis and despite the anion gap being slightly elevated at 23, the patient appears more consistent with HHNK. His osmolality is 354. He was placed on an insulin drip and will be admitted to the ICU. He has been accepted for admission by the hospitalist, Dr. De Leon. - Differential Diagnosis DKA, HHNK, cataracts, hypertensive urgency Critical Care Time: No Critical care attestation.: If time is entered above; I have spent that time in minutes in the direct care of this critically ill patient, excluding procedure time. ED Disposition Clinical Impression: HHNC (hyperglycemic hyperosmolar nonketotic coma), Diabetes mellitus, new onset , Blurry vision Hypertension Qualifiers: Hypertension type: essential hypertension Qualified Code(s): I10 - Essential ( primary) hypertension Disposition: OP ADMIT IP TO THIS HOSP Is pt being admited?: Yes Condition: Fair Time of Disposition: 03:38
[2017-06-13 22:21] LABS: Basophils % (Auto) 1.3 % (0.0-1.8); Eosinophils % (Auto) 0.9 % (0.0-4.3); Hematocrit 49.2 % (35.5-45.6); Hemoglobin 15.4 gm/dl (11.8-15.2); Mean Corpuscular HGB Conc 31 % (32-34); Mean Corpuscular Hemoglobin 28 pg (28-32); Mean Corpuscular Volume 89 fl (84-94); Platelet Count 186 K/mm3 (140-440); Red Blood Count 5.55 M/mm3 (3.65-5.03); Red Cell Distribution Width 12.3 % (13.2-15.2); White Blood Count 9.1 K/mm3 (4.5-11.0)
[2017-06-13 23:05] LABS: Alanine Aminotransferase 36 units/L (7-56); Albumin 4.2 g/dL (3.9-5); Albumin/Globulin Ratio 1.1 %; Alkaline Phosphatase 106 units/L (35-129); Anion Gap 23 mmol/L; BUN/Creatinine Ratio 24; Blood Urea Nitrogen 29 mg/dL (9-20); Calcium 9.7 mg/dL (8.4-10.2); Carbon Dioxide 23 mmol/L (22-30); Chloride 84.1 mmol/L (98-107); Sodium 125 mmol/L (137-145); Total Protein 7.9 g/dL (6.3-8.2)
--- NOTE | 2017-06-13 23:05 | Cat Scan Report ---
FINAL REPORT EXAM: CT HEAD/BRAIN WO CON HISTORY: blurry vision COMPARISON: None available. TECHNIQUE: Axial images obtained skull base through vertex. FINDINGS: No acute intracranial hemorrhage, midline shift or pathologic extra axial fluid collection. Ventricles and cisterns are normal in size and configuration for the patient's age. Alanis-white differentiation preserved. Calvarium grossly intact. Orbits are grossly unremarkable. Opacification of the left mastoid air cells and tympanic cavity. Under pneumatization of mastoid air cells bilaterally. IMPRESSION: No grossly acute intracranial abnormality. Opacification of left mastoid air cells and tympanic cavity.
[2017-06-13] MEDS ORDERED: DDAVP IV ONE (23:25)
[2017-06-13] MEDS ORDERED: NACL 0.9% IV ONE (23:25)
[2017-06-13 23:51] LABS: Glucose 988 mg/dL (75-100)
[2017-06-14] MEDS ORDERED: NACL 0.9% 1000 ML 1,000 ML IV ONE (00:01)
[2017-06-14] MEDS ORDERED: NORMODYNE IV ONE (00:04)
--- NOTE | 2017-06-14 00:51 | History and Physical Report ---
History of Present Illness Date of examination: 06/14/17 Date of admission: 06/14/17 Chief complaint: blurry vision History of present illness: This is a 47-year-old male with past medical history of hypertension and hemophilia who presents to the emergency department with complaints of blurred vision for the past 2 days. Patient also reports polydipsia and polyuria but no dysuria for the past couple of weeks. Patient also reports some bleeding from a cracked tooth in the left upper jaw. Patient was recently hospitalized here in April for partial small bowel obstruction and was treated conservatively. Patient was diagnosed with hypertension on that admission and started on Norvasc. Patient attributed his visual disturbances to the medication. Patient denies any fever or chills. No cough or cold-like symptoms. No chest pain or shortness of breath. Past History Past Medical History: hypertension, other (hemophilia) Past Surgical History: No surgical history Social history: no significant social history Family history: no significant family history Medications and Allergies Allergies Allergy/AdvReac Type Severity Reaction Status Date / Time aspirin AdvReac Bleeding Verified 06/13/17 17:44 Home Medications Medication Instructions Recorded Confirmed Last Taken Type amLODIPine [Norvasc] 10 mg PO QDAY #30 tablet 05/17/17 Unknown Rx Active Meds: Active Medications Dextrose (D50w (25gm) Syringe) 0 ml IV PRN PRN PRN Reason: Hypoglycemia Sodium Chloride (Nacl 0.9% 1000 Ml) 1,000 mls @ 999 mls/hr IV BOLUS ONE Stop: 06/14/17 01:01 Last Admin: 06/14/17 00:28 Dose: 999 mls/hr Insulin Human Regular 100 (units/ Sodium Chloride) 100 mls @ 6 mls/hr IV TITR RIKY; 6 UNITS/HR PRN Reason: Protocol Review of Systems All systems: negative Exam - Constitutional Vitals: Temp Pulse Resp BP Pulse Ox 98.4 F 99 H 16 179/122 99 06/13/17 20:38 06/14/17 00:28 06/13/17 21:54 06/14/17 00:28 06/13/17 21:54 General appearance: Present: no acute distress, well-nourished - EENT Eyes: Present: PERRL ENT: hearing intact, clear oral mucosa - Neck Neck: Present: supple, normal ROM - Respiratory Respiratory effort: normal Respiratory: bilateral: CTA - Cardiovascular Heart Sounds: Present: S1 & S2. Absent: rub, click - Extremities Extremities: pulses symmetrical, No edema Peripheral Pulses: within normal limits - Abdominal General gastrointestinal: Present: soft, non-tender, non-distended, normal bowel sounds Male genitourinary: Present: normal - Integumentary Integumentary: Present: clear, warm, dry - Musculoskeletal Musculoskeletal: gait normal, strength equal bilaterally - Psychiatric Psychiatric: appropriate mood/affect, intact judgment & insight - Neurologic Neurologic: CNII-XII intact, moves all extremities Results - Labs CBC & Chem 7: 06/13/17 22:08 06/13/17 22:08 Labs: Laboratory Last Values WBC 9.1 K/mm3 (4.5-11.0) 06/13/17 22:08 RBC 5.55 M/mm3 (3.65-5.03) H 06/13/17 22:08 Hgb 15.4 gm/dl (11.8-15.2) H 06/13/17 22:08 Hct 49.2 % (35.5-45.6) H 06/13/17 22:08 MCV 89 fl (84-94) 06/13/17 22:08 MCH 28 pg (28-32) 06/13/17 22:08 MCHC 31 % (32-34) L 06/13/17 22:08 RDW 12.3 % (13.2-15.2) L 06/13/17 22:08 Plt Count 186 K/mm3 (140-440) 06/13/17 22:08 Lymph % (Auto) 27.3 % (13.4-35.0) 06/13/17 22:08 [place] % (Auto) 5.4 % (0.0-7.3) 06/13/17 22:08 Eos % (Auto) 0.9 % (0.0-4.3) 06/13/17 22:08 Baso % (Auto) 1.3 % (0.0-1.8) 06/13/17 22:08 Lymph # 2.5 K/mm3 (1.2-5.4) 06/13/17 22:08 [place] # 0.5 K/mm3 (0.0-0.8) 06/13/17 22:08 Eos # 0.1 K/mm3 (0.0-0.4) 06/13/17 22:08 Baso # 0.1 K/mm3 (0.0-0.1) 06/13/17 22:08 Seg Neutrophils % 65.1 % (40.0-70.0) 06/13/17 22:08 Seg Neutrophils # 5.9 K/mm3 (1.8-7.7) 06/13/17 22:08 Sodium 125 mmol/L (137-145) L 06/13/17 22:08 Potassium 5.0 mmol/L (3.6-5.0) 06/13/17 22:08 Chloride 84.1 mmol/L (98-107) L 06/13/17 22:08 Carbon Dioxide 23 mmol/L (22-30) 06/13/17 22:08 Anion Gap 23 mmol/L 06/13/17 22:08 BUN 29 mg/dL (9-20) H 06/13/17 22:08 Creatinine 1.2 mg/dL (0.8-1.5) 06/13/17 22:08 Estimated GFR > 60 ml/min 06/13/17 22:08 BUN/Creatinine Ratio 24 % 06/13/17 22:08 Glucose 988 mg/dL (75-100) H* 06/13/17 22:08 Calcium 9.7 mg/dL (8.4-10.2) 06/13/17 22:08 Total Bilirubin 0.60 mg/dL (0.1-1.2) 06/13/17 22:08 AST 28 units/L (5-40) 06/13/17 22:08 ALT 36 units/L (7-56) 06/13/17 22:08 Alkaline Phosphatase 106 units/L (35-129) 06/13/17 22:08 Total Protein 7.9 g/dL (6.3-8.2) 06/13/17 22:08 Albumin 4.2 g/dL (3.9-5) 06/13/17 22:08 Albumin/Globulin Ratio 1.1 % 06/13/17 22:08 TSH 0.754 mlU/mL (0.270-4.200) 06/13/17 22:08 Assessment and Plan Assessment and plan: Hyperosmolar nonketotic syndrome. Patient appears to have new onset diabetes mellitus. Will place patient on IV insulin drip for now. Continue to follow BMP and Accu-Cheks closely. Diabetic teaching. Pseudo-hyponatremia. IV fluid hydration with normal saline. Follow BMP. Accelerated hypertension. Continue Norvasc. Add IV hydralazine as needed. Hemophilia A. Hematology consultation. Patient received desmopressin in the emergency room. Hematology recommends that if the DDAVP does not work, then factor VIII should be given in the form of Helixate, and the dosing would be 10 units per KG. DVT prophylaxis. No anticoagulation secondary to above.
[2017-06-14] MEDS ORDERED: MILK OF MAGNESIA PO PRN (00:56)
[2017-06-14] MEDS ORDERED: ALUM-MAG HYDROX-SIMETH 200-200-20MG/5ML PO PRN (00:56)
[2017-06-14] MEDS ORDERED: DULCOLAX PR PRN (00:56)
[2017-06-14] MEDS ORDERED: D50W (25GM) Syringe IV PRN ×3 (00:56→15:34)
[2017-06-14] MEDS ORDERED: NovoLIN R 100 UNITS in NACL 0.9% 99 ML IV SCH ×2 (01:00)
[2017-06-14] MEDS ORDERED: NACL 0.9% 1000 ML 1,000 ML IV SCH (01:00)
[2017-06-14 01:46] LABS: Anion Gap 23 mmol/L; BUN/Creatinine Ratio 22; Blood Urea Nitrogen 26 mg/dL (9-20); Calcium 9.2 mg/dL (8.4-10.2); Carbon Dioxide 22 mmol/L (22-30); Chloride 87.1 mmol/L (98-107); Potassium 5.4 mmol/L (3.6-5.0); Sodium 127 mmol/L (137-145)
[2017-06-14 01:56] LABS: Glucose 890 mg/dL (75-100)
[2017-06-14 02:15] LABS: Bilirubin,Urine NEG (Negative); Blood,Urine NEG (Negative); Ketones,Urine TR mg/dL (Negative); Leukocyte Esterase,Urine NEG (Negative); Mucus,Urine FEW /HPF; Nitrite,Urine NEG (Negative); Protein,Urine <15 mg/dL mg/dL (Negative); Urobilinogen,Urine < 2.0 mg/dL (<2.0)
[2017-06-14 02:31] LABS: Anion Gap 20 mmol/L; BUN/Creatinine Ratio 19; Blood Urea Nitrogen 25 mg/dL (9-20); Calcium 8.6 mg/dL (8.4-10.2); Carbon Dioxide 25 mmol/L (22-30); Potassium 4.5 mmol/L (3.6-5.0); Sodium 131 mmol/L (137-145)
[2017-06-14 02:39] LABS: Glucose 733 mg/dL (75-100)
[2017-06-14 05:05] LABS: Anion Gap 21 mmol/L; BUN/Creatinine Ratio 19; Blood Urea Nitrogen 23 mg/dL (9-20); Calcium 8.6 mg/dL (8.4-10.2); Carbon Dioxide 22 mmol/L (22-30); Chloride 94.6 mmol/L (98-107); Potassium 3.4 mmol/L (3.6-5.0); Sodium 134 mmol/L (137-145)
[2017-06-14 06:19] LABS: Glucose 642 mg/dL (75-100)
[2017-06-14 06:39] LABS: Anion Gap 18 mmol/L; BUN/Creatinine Ratio 19; Blood Urea Nitrogen 21 mg/dL (9-20); Carbon Dioxide 26 mmol/L (22-30); Chloride 97.7 mmol/L (98-107); Glucose 363 mg/dL (75-100); Potassium 3.4 mmol/L (3.6-5.0); Sodium 138 mmol/L (137-145)
[2017-06-14] MEDS ORDERED: K-DUR PO NR (09:00)
[2017-06-14] MEDS ORDERED: D5W/0.45% NACL/KCL 20 MEQ 20 MEQ/1,000 ML BAG IV SCH (10:00)
[2017-06-14 10:29] LABS: Anion Gap 17 mmol/L; BUN/Creatinine Ratio 17; Blood Urea Nitrogen 19 mg/dL (9-20); Calcium 9.2 mg/dL (8.4-10.2); Carbon Dioxide 29 mmol/L (22-30); Chloride 98.6 mmol/L (98-107); Glucose 137 mg/dL (75-100); Potassium 3.7 mmol/L (3.6-5.0); Sodium 141 mmol/L (137-145)
--- NOTE | 2017-06-14 11:39 | Event Note ---
Date: 06/14/17 Patient with hyperosomolar hyperglycemic syndrome. Blood glucose improved. will d/c Insulin drip, transition to Novolin 70/30 subcut bid, transfer to Med/Surg.
[2017-06-14] MEDS: NOVOLOG SUB-Q SCH ×2 (16:18→23:03)
[2017-06-14 17:01] LABS: BUN/Creatinine Ratio 15; Blood Urea Nitrogen 18 mg/dL (9-20); Calcium 8.3 mg/dL (8.4-10.2); Carbon Dioxide 25 mmol/L (22-30); Glucose 331 mg/dL (75-100)
[2017-06-14 17:02] LABS: Anion Gap 18 mmol/L; Chloride 98.2 mmol/L (98-107); Potassium 4.1 mmol/L (3.6-5.0); Sodium 137 mmol/L (137-145)
[2017-06-15] MEDS: NOVOLOG SUB-Q SCH ×5 (00:23→21:52)
[2017-06-15 01:14] LABS: Anion Gap 18 mmol/L; BUN/Creatinine Ratio 15; Blood Urea Nitrogen 15 mg/dL (9-20); Calcium 8.3 mg/dL (8.4-10.2); Carbon Dioxide 23 mmol/L (22-30); Chloride 100.5 mmol/L (98-107); Glucose 363 mg/dL (75-100); Potassium 3.6 mmol/L (3.6-5.0); Sodium 138 mmol/L (137-145)
[2017-06-15] MEDS: NACL 0.9% 1000 ML 1,000 ML IV SCH ×3 (03:04→18:14)
--- NOTE | 2017-06-15 09:20 | Progress Note ---
Assessment and Plan Assessment and plan: Hyperosmolar hyperglycemic syndrome. Patient was initially on Insulin drip, discontinued. Now on Novolin 70/30 bid. Blood glucose improving but still high. Increased Novolin 70/30 to 30 units bid. Diabetes mellitus type 2 , new onset. Just diagnosed this admission. Surgical Supply Assistant to see Hypertension. BP stable. Hemophilia. Stable. No active bleed. Outpatient follow up. DVT prophylaxis. SCDS only, since history of hemophilia. Full code status History Interval history: feels better, Gen weakness, no vomiting Polyuria improved Hospitalist Physical - Physical exam Narrative exam: GEN APPEARANCE : Not in acute distress, Morbidly obese HEENT: Normocephalic, atraumatic NECK : supple, no JVD LUNGS: Clear to auscultation bilaterally, no rales, no wheeze HEART: S1 and S2 regular, no murmurs, rubs or gallop, ABD: Soft, non tender, non distended, normal bowel sounds EXT: No edema, no clubbing, no cyanosis NEURO: Awake,alert, oriented x 3, no facial asymmetry,no focal signs Psych: Normal mood - Constitutional Vitals: Temp Pulse Resp BP Pulse Ox 98.7 F 81 20 110/69 96 06/15/17 07:48 06/15/17 07:48 06/15/17 07:48 06/15/17 07:48 06/15/17 07:48 Results - Labs CBC & Chem 7: 06/13/17 22:08 06/15/17 00:31 Labs: Laboratory Last Values WBC 9.1 K/mm3 (4.5-11.0) 06/13/17 22:08 RBC 5.55 M/mm3 (3.65-5.03) H 06/13/17 22:08 Hgb 15.4 gm/dl (11.8-15.2) H 06/13/17 22:08 Hct 49.2 % (35.5-45.6) H 06/13/17 22:08 MCV 89 fl (84-94) 06/13/17 22:08 MCH 28 pg (28-32) 06/13/17 22:08 MCHC 31 % (32-34) L 06/13/17 22:08 RDW 12.3 % (13.2-15.2) L 06/13/17 22:08 Plt Count 186 K/mm3 (140-440) 06/13/17 22:08 Lymph % (Auto) 27.3 % (13.4-35.0) 06/13/17 22:08 [place] % (Auto) 5.4 % (0.0-7.3) 06/13/17 22:08 Eos % (Auto) 0.9 % (0.0-4.3) 06/13/17 22:08 Baso % (Auto) 1.3 % (0.0-1.8) 06/13/17 22:08 Lymph # 2.5 K/mm3 (1.2-5.4) 06/13/17 22:08 [place] # 0.5 K/mm3 (0.0-0.8) 06/13/17 22:08 Eos # 0.1 K/mm3 (0.0-0.4) 06/13/17 22:08 Baso # 0.1 K/mm3 (0.0-0.1) 06/13/17 22:08 Seg Neutrophils % 65.1 % (40.0-70.0) 06/13/17 22:08 Seg Neutrophils # 5.9 K/mm3 (1.8-7.7) 06/13/17 22:08 VBG pH 7.356 (7.320-7.420) 06/14/17 00:16 Sodium 138 mmol/L (137-145) 06/15/17 00:31 Potassium 3.6 mmol/L (3.6-5.0) 06/15/17 00:31 Chloride 100.5 mmol/L (98-107) 06/15/17 00:31 Carbon Dioxide 23 mmol/L (22-30) 06/15/17 00:31 Anion Gap 18 mmol/L 06/15/17 00:31 BUN 15 mg/dL (9-20) 06/15/17 00:31 Creatinine 1.0 mg/dL (0.8-1.5) 06/15/17 00:31 Estimated GFR > 60 ml/min 06/15/17 00:31 BUN/Creatinine Ratio 15 % 06/15/17 00:31 Glucose 363 mg/dL (75-100) H 06/15/17 00:31 POC Glucose 345 (70-105) H 06/15/17 05:39 Hemoglobin A1c 11.5 % (4-6) H 06/14/17 00:16 Osmolality 354 Mosm/kg 06/14/17 00:16 Calcium 8.3 mg/dL (8.4-10.2) L 06/15/17 00:31 Phosphorus 4.70 mg/dL (2.5-4.5) H 06/14/17 00:16 Magnesium 2.20 mg/dL (1.7-2.3) 06/14/17 00:16 Total Bilirubin 0.60 mg/dL (0.1-1.2) 06/13/17 22:08 AST 28 units/L (5-40) 06/13/17 22:08 ALT 36 units/L (7-56) 06/13/17 22:08 Alkaline Phosphatase 106 units/L (35-129) 06/13/17 22:08 Total Protein 7.9 g/dL (6.3-8.2) 06/13/17 22:08 Albumin 4.2 g/dL (3.9-5) 06/13/17 22:08 Albumin/Globulin Ratio 1.1 % 06/13/17 22:08 TSH 0.754 mlU/mL (0.270-4.200) 06/13/17 22:08 Urine Color Colorless (Yellow) 06/14/17 Unknown Urine Turbidity Clear (Clear) 06/14/17 Unknown Urine pH 5.0 (5.0-7.0) 06/14/17 Unknown Ur Specific [place] 1.028 (1.003-1.030) 06/14/17 Unknown Urine Protein <15 mg/dl mg/dL (Negative) 06/14/17 Unknown Urine Glucose (UA) >=500 mg/dL (Negative) 06/14/17 Unknown Urine Ketones Tr mg/dL (Negative) 06/14/17 Unknown Urine Blood Neg (Negative) 06/14/17 Unknown Urine Nitrite Neg (Negative) 06/14/17 Unknown Urine Bilirubin Neg (Negative) 06/14/17 Unknown Urine Urobilinogen < 2.0 mg/dL (<2.0) 06/14/17 Unknown Ur Leukocyte Esterase Neg (Negative) 06/14/17 Unknown Urine WBC (Auto) 1.0 /HPF (0.0-6.0) 06/14/17 Unknown Urine RBC (Auto) 1.0 /HPF (0.0-6.0) 06/14/17 Unknown U Epithel Cells (Auto) < 1.0 /HPF (0-13.0) 06/14/17 Unknown Urine Mucus Few /HPF 06/14/17 Unknown
--- NOTE | 2017-06-15 10:00 | Consultation ---
REFERRING PHYSICIAN: Blake Garcia MD REASON FOR CONSULTATION: Hemophilia A. HISTORY OF PRESENT ILLNESS: The patient is a 47-year-old male with history of hemophilia A. He came in with evidence of fatigue and was found to have diabetic ketoacidosis. He also had been complaining of bleeding from a cracked tooth in the middle upper jaw. The patient states he does not take any factor VIII on a regular basis. Last time, he took some was in 1999. In the Emergency Room, we were called and his case was discussed with us. Dr. Zamorano did suggest giving DDAVP. If that did not work, he was to get factor VIII. The patient feels ____. His tooth improved. He is looking for oral surgeon to get the tooth pulled. His past medical history is otherwise unremarkable. He does not smoke or drink. He has hemophilia A, mild. SOCIAL HISTORY: He does not smoke or drink. PHYSICAL EXAMINATION: GENERAL: The patient is awake and oriented. HEENT: Unremarkable. CHEST: Clear. CARDIOVASCULAR: Regular rate and rhythm. ABDOMEN: Soft. EXTREMITIES: Has no clubbing, cyanosis or edema. PERTINENT LABORATORY DATA: Glucose is coming down, his admission hemoglobin was 15.4, white count 9.1, platelets 186,000. ASSESSMENT: 1. Hemophilia A, currently not needing any factor at home. 2. Gum bleeding from cracked tooth, improved with DDAVP. PLAN: At this time, we will follow him remotely. He has been advised to see [facility]. If he has difficulty, we can see him. He may need factor VIII or DDAVP prior to pulling his tooth. The patient understands. JOB# [id number] MANUELAS/NTS
[2017-06-15] MEDS ORDERED: K-DUR PO ONE (11:00)
[2017-06-15] MEDS ORDERED: POTASSIUM CHLORIDE PO ONE (11:01)
[2017-06-16] MEDS: NACL 0.9% 1000 ML 1,000 ML IV SCH (05:07)
[2017-06-16] MEDS: NOVOLOG SUB-Q SCH ×4 (07:33→17:00)
--- NOTE | 2017-06-16 10:20 | Discharge Summary ---
Providers - Providers Date of Admission: 06/14/17 00:56 Date of discharge: 06/16/17 Attending physician: LUCAS HAMILTON 06/14/17 00:56 Consult to Dietitian/Nutrition [CONS] Routine Physician Instructions: Reason For Exam: Reason for Consult: Diet education Primary care physician: LUCAS MURRAY Hospitalization Condition: Fair Hospital course: Patient is 47 yo with hypertension, presented with blurred vision. In ED he had glucose of 988, CO2 of 23. He was diagnosed with hyperosmolar hyperglycemic syndrome, new onset diabetes He was started on Insulin drip and admitted. Blood glucose improved so was downgraded to med/surg. He was transitioned to subcutanous Novolin 70/30. Blood glucose continued to improve and he was discharged home on 06/16/17. Total time spent on discharge,32 mins. Disposition: [id number] HOME UNDER HOME HLTH - Discharge Diagnoses (1) New onset type 2 diabetes mellitus Status: Acute (2) Hypertension Status: Chronic Qualifiers: Hypertension type: essential hypertension Qualified Code(s): I10 - Essential (primary) hypertension (3) Hyperosmolar syndrome Status: Acute (4) Hyperosmolar non-ketotic state in patient with type 2 diabetes mellitus Status: Acute Core Measure Documentation - Palliative Care Palliative Care/ Comfort Measures: Not Applicable - Core Measures Any of the following diagnoses?: none Exam - Physical Exam Narrative exam: GEN APPEARANCE : Not in acute distress, Morbidly obese HEENT: Normocephalic, atraumatic NECK : supple, no JVD LUNGS: Clear to auscultation bilaterally, no rales, no wheeze HEART: S1 and S2 regular, no murmurs, rubs or gallop, ABD: Soft, non tender, non distended, normal bowel sounds EXT: No edema, no clubbing, no cyanosis NEURO: Awake,alert, oriented x 3, no facial asymmetry,no focal signs Psych: Normal mood - Constitutional Vitals: Temp Pulse Resp BP Pulse Ox 98.4 F 73 20 136/86 93 06/16/17 07:45 06/16/17 07:45 06/16/17 07:45 06/16/17 07:45 06/16/17 07:45 Plan Activity: no restrictions Diet: low fat, low cholesterol, low salt, diabetic Additional Instructions: 1.Follow up with PCP in 1 week. 2.Check fingerstick glucose before every meal and at bedtime and show log to PCP Follow up with: LUCAS MURRAY MD [Primary Care Provider] - 3-5 Days Forms: Work/School Release Form Prescriptions: amLODIPine [Norvasc] 5 mg PO DAILY #30 tab Insulin NPH/Regular [Novolin 70/30] 24 unit SQ BIDDIAB #1 vial
[2017-06-16 12:03] VITALS: BP 127/90
== END 2017-06-16 18:18 | disposition home health service (06) | DRG 637 ==
LOC: ED 17:43 → CC1 06-14 00:56 → 3A 06-14 13:26
PROVIDERS: ADMIT Hospitalist; ATTEND Internal Medicine
DX: E11.00 Type 2 diabetes mellitus with hyperosmolarity without nonketotic hyperglycemic-hyperosmolar coma (NKHHC) (principal); D66 Hereditary factor VIII deficiency; E87.1 Hypo-osmolality and hyponatremia; Z90.49 Acquired absence of other specified parts of digestive tract; Z88.8 Allergy status to other drugs, medicaments and biological substances
CPT/HCPCS: 36415; 70450; 80048; 80053; 81001; 82805; 82962; 83036; 83735; 83930; 84100; 84443; 85025; 93005; 93010; 96374; 96375; J1815; J2597; J7030

== ENCOUNTER 2018-04-20 00:11 | Emergency (ER) | payer OTHER ==
[2018-04-20] MEDS ORDERED: HumuLIN R IV ONE ×3 (00:41→03:42)
[2018-04-20] MEDS ORDERED: NACL 0.9% 1000 ML 1,000 ML IV ONE ×2 (00:41→01:55)
[2018-04-20 00:42] LABS: Hematocrit 47.6 % (35.5-45.6); Hemoglobin 15.5 gm/dl (11.8-15.2); Mean Corpuscular HGB Conc 33 % (32-34); Mean Corpuscular Hemoglobin 28 pg (28-32); Mean Corpuscular Volume 86 fl (84-94); Platelet Count 175 K/mm3 (140-440); Red Blood Count 5.53 M/mm3 (3.65-5.03); Red Cell Distribution Width 12.8 % (13.2-15.2)
[2018-04-20] MEDS ORDERED: APRESOLINE IV ONE (00:42)
--- NOTE | 2018-04-20 00:45 | Emergency Department Report ---
ED General Adult HPI - General Chief complaint: High BP Stated complaint: HIGH BLOOD SUGAR Time Seen by Provider: 04/20/18 00:36 Source: patient Mode of arrival: Ambulatory Limitations: No Limitations - History of Present Illness Initial comments: Patient is 47 years old male with history of diabetes type 2. Patient presented to the ER complaining of high blood sugar and high blood pressure. Patient does not remember the last time he took his insulin. Patient was taking his insulin as needed. Patient is complaining of blurred vision, generalized weakness increased thirsty and urination. Patient denied any fever , nausea or vomiting, abdominal pain, chest pain, shortness of breath, headache. - Related Data Previous Rx's Medication Instructions Recorded Last Taken Type Insulin NPH/Regular [Novolin 70/30] 24 unit SQ BIDDIAB #1 vial 06/16/17 Unknown Rx amLODIPine [Norvasc] 5 mg PO DAILY #30 tab 06/16/17 Unknown Rx Allergies Allergy/AdvReac Type Severity Reaction Status Date / Time aspirin AdvReac Bleeding Verified 06/13/17 17:44 ED Review of Systems ROS: Stated complaint: HIGH BLOOD SUGAR Other details as noted in HPI Comment: All other systems reviewed and negative Constitutional: denies: chills, fever Respiratory: denies: cough, orthopnea, shortness of breath, SOB with exertion Gastrointestinal: denies: abdominal pain, nausea, vomiting, diarrhea, constipation, hematemesis, hematochezia Musculoskeletal: denies: back pain Neurological: denies: headache, weakness, numbness, paresthesias, confusion, abnormal gait ED Past Medical Hx - Past Medical History Previous Medical History?: Yes Hx Hypertension: Yes Hx Congestive Heart Failure: No Hx Diabetes: Yes Hx Asthma: No Hx COPD: No Hx HIV: No Additional medical history: hemophillia - Surgical History Past Surgical History?: Yes Hx Cholecystectomy: Yes Additional Surgical History: colon removed - Social History Smoking Status: Never Smoker Substance Use Type: None - Medications Home Medications: Home Medications Medication Instructions Recorded Confirmed Last Taken Type Insulin NPH/Regular [Novolin 70/30] 24 unit SQ BIDDIAB #1 vial 06/16/17 Unknown Rx amLODIPine [Norvasc] 5 mg PO DAILY #30 tab 06/16/17 04/20/18 Unknown Rx ED Physical Exam - General Limitations: No Limitations General appearance: alert, in no apparent distress - Head Head exam: Present: atraumatic, normocephalic, normal inspection - Eye Eye exam: Present: normal appearance, PERRL - ENT ENT exam: Present: mucous membranes dry - Neck Neck exam: Present: normal inspection, full ROM. Absent: tenderness, meningismus, lymphadenopathy, thyromegaly - Respiratory Respiratory exam: Present: normal lung sounds bilaterally. Absent: respiratory distress, wheezes, rales, rhonchi, stridor, accessory muscle use, decreased breath sounds, prolonged expiratory - Cardiovascular Cardiovascular Exam: Present: regular rate, normal rhythm, normal heart sounds - GI/Abdominal GI/Abdominal exam: Present: soft, normal bowel sounds. Absent: distended, tenderness, guarding, rebound, rigid, organomegaly, mass, bruit, pulsatile mass , hernia - Extremities Exam Extremities exam: Present: normal inspection, full ROM, normal capillary refill. Absent: pedal edema, calf tenderness - Back Exam Back exam: Present: normal inspection, full ROM. Absent: CVA tenderness (R), CVA tenderness (L) - Neurological Exam Neurological exam: Present: alert, oriented X3, CN II-XII intact, normal gait, reflexes normal - Skin Skin exam: Present: warm, intact, normal color ED Course Vital Signs 04/20/18 04/20/18 04/20/18 00:18 00:45 01:00 Temperature 98.6 F Pulse Rate 96 H 73 68 Respiratory 18 21 18 Rate Blood Pressure 156/113 179/108 156/99 Blood Pressure [Left] O2 Sat by Pulse 96 Oximetry 04/20/18 04/20/18 04/20/18 01:02 01:03 01:16 Temperature 98.6 F Pulse Rate 81 85 101 H Respiratory 16 24 Rate Blood Pressure 179/108 156/99 Blood Pressure 179/108 [Left] O2 Sat by Pulse 99 Oximetry 04/20/18 04/20/18 04/20/18 01:30 01:40 01:56 Temperature Pulse Rate 100 H 102 H 105 H Respiratory 22 25 H 16 Rate Blood Pressure 179/108 179/108 116/68 Blood Pressure [Left] O2 Sat by Pulse Oximetry 04/20/18 04/20/18 04/20/18 02:00 02:30 03:00 Temperature Pulse Rate 103 H Respiratory 17 25 H 18 Rate Blood Pressure 129/67 104/66 108/73 Blood Pressure [Left] O2 Sat by Pulse Oximetry 04/20/18 04/20/18 03:30 04:00 Temperature Pulse Rate 89 Respiratory 17 15 Rate Blood Pressure 121/79 120/74 Blood Pressure [Left] O2 Sat by Pulse Oximetry ED Medical Decision Making - Lab Data Result diagrams: 04/20/18 00:25 04/20/18 00:25 - Medical Decision Making Mr Abdi is 47 years old male with history of diabetes type 2. Patient presented to the ER complaining of high blood sugar and high blood pressure. Patient does not remember the last time he took his insulin. Patient was taking his insulin as needed. Patient is complaining of blurred vision, generalized weakness increased thirsty and urination. Patient denied any fever , nausea or vomiting, abdominal pain, chest pain, shortness of breath, headache. Patient initial blood sugar was 699. Patient received multiple doses of IV insulin and fluids. His blood sugar now is 255. Patient stated that he is feeling much better. Patient also received labetalol for his blood pressure. I will start patient on metformin and insulin and I advised the patient to follow-up with [facility]. Critical care attestation.: If time is entered above; I have spent that time in minutes in the direct care of this critically ill patient, excluding procedure time. ED Disposition Clinical Impression: Hyperglycemia due to type 2 diabetes mellitus, Malignant hypertension Disposition: -01 TO HOME OR SELFCARE Is pt being admited?: No Condition: Stable Instructions: Diabetes Mellitus Type 2 in Adults (ED), Hypertension (ED) Referrals: PRIMARY CAREMD [Primary Care Provider] - 3-5 Days [facility] [Provider Group] - 3-5 Days
[2018-04-20 00:51] LABS: BUN/Creatinine Ratio 10; Blood Urea Nitrogen 12 mg/dL (9-20); Calcium 9.2 mg/dL (8.4-10.2); Hemolysis Index 4
[2018-04-20 01:24] LABS: Bilirubin,Urine NEG (Negative); Blood,Urine SM (Negative); Color,Urine Straw (Yellow); Protein,Urine <15 mg/dL mg/dL (Negative); Urobilinogen,Urine < 2.0 mg/dL (<2.0)
[2018-04-20 02:56] LABS: Basophils % (Manual) 0 % (0.0-1.8); Eosinophils % (Manual) 0 % (0.0-4.3); Platelet Estimate Consistent w Auto; Total Cells Counted 100
[2018-04-20 06:04] VITALS: BP 116/71
== END 2018-04-20 06:08 | disposition home or self-care (01) ==
LOC: ED 00:11
DX: E11.65 Type 2 diabetes mellitus with hyperglycemia (principal); I10 Essential (primary) hypertension; Z90.49 Acquired absence of other specified parts of digestive tract; Z88.6 Allergy status to analgesic agent; Z79.4 Long term (current) use of insulin
CPT/HCPCS: 36415; 80048; 81001; 82805; 82962; 85007; 85025; 96361; 96374; 96375; 96376; 99284; J0360; J7030; J1815